=== PATIENT | female | born 1940 | race Caucasian/White ===

== ENCOUNTER → 2017-03-09 | Outpatient (CLI) | payer MEDICARE | END | disposition home or self-care (01) | LOC: CFH 08:34 | PROVIDERS: ATTEND Nurse Practitioner Family | DX: Z12.31 Encounter for screening mammogram for malignant neoplasm of breast (principal) | CPT/HCPCS: G0202 ==

== ENCOUNTER → 2018-06-08 | Outpatient (CLI) | payer MEDICARE | END | disposition home or self-care (01) | LOC: CFH 09:26 | PROVIDERS: ATTEND Nurse Practitioner Family | DX: Z12.31 Encounter for screening mammogram for malignant neoplasm of breast (principal) | CPT/HCPCS: 77067 ==

== ENCOUNTER → 2018-06-16 | Outpatient (CLI) | payer MEDICARE | END | disposition home or self-care (01) | LOC: CFH 12:19 | PROVIDERS: ATTEND Nurse Practitioner Family | DX: M81.0 Age-related osteoporosis without current pathological fracture (principal) | CPT/HCPCS: 77080 ==

== ENCOUNTER 2018-10-27 08:10 | Outpatient (CLI) | payer MEDICARE ==
[~2018-10-27 08:10] MED LIST: REGADENOSON 0.4 MG/5 ML SYRINGE ONE
[2018-11-12] MEDS ORDERED: METO25TA91 PO (08:55)
[2018-11-12] MEDS ORDERED: LISI1TAB23 PO (08:55)
[2018-11-12] MEDS ORDERED: CA C1TAB35 PO (09:03)
[2018-11-12] MEDS ORDERED: SENN1TAB67 PO (09:03)
[2018-11-12] MEDS ORDERED: ALEN70TA6 PO (09:03)
[2018-11-12] MEDS ORDERED: RIVA20TA PO (09:03)
[2018-11-12] MEDS ORDERED: MULT-658 PO (09:03)
== END 2018-10-27 23:59 | disposition home or self-care (01) ==
LOC: CFH 08:10
PROVIDERS: ATTEND Internal Medicine Cardiovascular Disease
DX: I25.9 Chronic ischemic heart disease, unspecified (principal); I48.1 Persistent atrial fibrillation; I10 Essential (primary) hypertension
CPT/HCPCS: 78452; 93017; A9502; J2785

== ENCOUNTER 2018-11-17 08:19 | Day surgery (SDC) | payer MEDICARE ==
[~2018-11-17] VITALS: Ht 170.2 cm; Wt 102.2 kg
[2018-11-17 19:31] VITALS: BP 138/68
== END 2018-11-17 21:25 | disposition home or self-care (01) ==
LOC: CACL 08:19 → 5SO 16:05 → CACL 21:25
PROVIDERS: ATTEND Internal Medicine Cardiovascular Disease
DX: R93.1 Abnormal findings on diagnostic imaging of heart and coronary circulation (principal); I48.91 Unspecified atrial fibrillation; I10 Essential (primary) hypertension; Z79.82 Long term (current) use of aspirin; Z87.891 Personal history of nicotine dependence; Z88.0 Allergy status to penicillin
CPT/HCPCS: 93458; 99156; 99157; C1769; C1894; J1644; J2250; J3010; Q9967; G0378; J0583

== ENCOUNTER 2019-09-15 09:02 | Outpatient (CLI) | payer MEDICARE ==
[~2019-09-15 09:02] MED LIST changes: +ALEN70TA6 PO; +CA C1TAB35 PO; +LISI1TAB23 PO; +METO25TA91 PO; +MULT-658 PO; -REGADENOSON 0.4 MG/5 ML SYRINGE ONE; +RIVA20TA PO; +SENN1TAB67 PO
== END 2019-09-15 23:59 | disposition home or self-care (01) ==
LOC: CFH 09:02
PROVIDERS: ATTEND Nurse Practitioner Family
DX: Z12.31 Encounter for screening mammogram for malignant neoplasm of breast (principal)
CPT/HCPCS: 77067

== ENCOUNTER → 2019-09-19 | Outpatient (CLI) | payer MEDICARE | END | disposition home or self-care (01) | LOC: CVU 07:33 | PROVIDERS: ATTEND Internal Medicine Cardiovascular Disease | DX: I83.93 Asymptomatic varicose veins of bilateral lower extremities (principal); R60.0 Localized edema | CPT/HCPCS: 93970 ==

== ENCOUNTER 2020-02-27 10:27 | Day surgery (SDC) | payer MEDICARE ==
[~2020-02-27] VITALS: Ht 170.2 cm; Wt 104.5 kg
[~2020-02-27 10:27] MED LIST changes: -ALEN70TA6 PO; +ALEN70TA66 PO
[2020-02-27 10:51] VITALS: BP 122/82
[2020-02-27] MEDS ORDERED: CA C1TAB60 PO (11:05)
[2020-02-27] MEDS ORDERED: HYDR25TA6 PO (11:05)
[2020-02-27] MEDS ORDERED: LISI5TAB7 PO (11:05)
[2020-02-27 11:30] LABS: ANION GAP 4 mmol/L (5-15); CALCIUM 8.9 mg/dL (8.5-10.1); CHLORIDE 105 mmol/L (98-107); CREATININE 0.96 mg/dL (0.55-1.02)
[2020-02-27] MEDS ORDERED: PROPOFOL 10 MG/ML, 20ML ONE (12:15)
== END 2020-02-27 13:25 | disposition home or self-care (01) ==
LOC: CACL 10:27
PROVIDERS: ATTEND Internal Medicine Cardiovascular Disease
DX: I48.91 Unspecified atrial fibrillation (principal); I10 Essential (primary) hypertension; M81.0 Age-related osteoporosis without current pathological fracture; I87.2 Venous insufficiency (chronic) (peripheral); E66.9 Obesity, unspecified; Z68.35 Body mass index [BMI] 35.0-35.9, adult; Z79.01 Long term (current) use of anticoagulants; Z79.899 Other long term (current) drug therapy; Z87.891 Personal history of nicotine dependence; Z88.0 Allergy status to penicillin; Z90.89 Acquired absence of other organs
CPT/HCPCS: 36415; 80048; 92960; J2704

== ENCOUNTER → 2020-04-30 | Outpatient (CLI) | payer MEDICARE ==
[~2020-04-30] MED LIST changes: -ALEN70TA66 PO; +ALEN70TA77 PO; +CA C1TAB60 PO; +HYDR25TA6 PO; +LISI5TAB7 PO
== END | disposition home or self-care (01) ==
LOC: CVU 07:56
PROVIDERS: ATTEND Registered Nurse
DX: I08.2 Rheumatic disorders of both aortic and tricuspid valves (principal); I71.9 Aortic aneurysm of unspecified site, without rupture; I10 Essential (primary) hypertension; I48.91 Unspecified atrial fibrillation; Z87.891 Personal history of nicotine dependence; Z79.01 Long term (current) use of anticoagulants
CPT/HCPCS: 93306

== ENCOUNTER 2020-11-16 05:47 | Day surgery (SDC) | payer MEDICARE ==
[~2020-11-16] VITALS: Ht 168.9 cm; Wt 92.3 kg
[~2020-11-16 05:47] MED LIST changes: +DIGO125T85 PO; +SOTA80TA18 PO
[2020-11-16 07:02] VITALS: BP 118/70
[2020-11-16 07:11] LABS: BASOPHILS % (AUTO) 1 % (0-1); EOSINOPHILS % (AUTO) 1 % (1-7); LYMPHOCYTES % (AUTO) 23 % (22-44); MEAN CORPUSCULAR HEMOGLOBIN 29.8 pg (27.0-34.8); MEAN CORPUSCULAR HGB CONC 33.7 g/dL (32.4-35.8); MONOCYTES % (AUTO) 6 % (2-9); NEUTROPHILS % (AUTO) 68 % (42-75); PLATELET COUNT 223 x10^3/uL (130-400); RED BLOOD COUNT 4.67 x10^6/uL (3.82-5.3); RED CELL DISTRIBUTION WIDTH 13.4 % (9.6-15.2)
[2020-11-16 07:19] LABS: ANION GAP 7 mmol/L (5-15); CALCIUM 9.2 mg/dL (8.5-10.1); CHLORIDE 104 mmol/L (98-107); CREATININE 0.79 mg/dL (0.55-1.02)
[2020-11-16] MEDS ORDERED: PROPOFOL 10 MG/ML, 20ML ONE (09:02)
== END 2020-11-16 09:34 | disposition home or self-care (01) ==
LOC: CACL 05:47
PROVIDERS: ATTEND Internal Medicine Cardiovascular Disease
DX: I48.91 Unspecified atrial fibrillation (principal); I10 Essential (primary) hypertension; M81.0 Age-related osteoporosis without current pathological fracture; I87.2 Venous insufficiency (chronic) (peripheral); E66.9 Obesity, unspecified; Z79.01 Long term (current) use of anticoagulants; Z79.899 Other long term (current) drug therapy; Z87.891 Personal history of nicotine dependence; Z88.0 Allergy status to penicillin; Z95.0 Presence of cardiac pacemaker
CPT/HCPCS: 36415; 80048; 85025; 92960; J2704

== ENCOUNTER → 2020-11-19 | Outpatient (CLI) | payer MEDICARE | END | disposition home or self-care (01) | LOC: CFH 10:07 | PROVIDERS: ATTEND Nurse Practitioner Family | DX: Z12.31 Encounter for screening mammogram for malignant neoplasm of breast (principal); M81.0 Age-related osteoporosis without current pathological fracture | CPT/HCPCS: 77063; 77067 ==

== ENCOUNTER 2020-12-13 08:44 | Outpatient (CLI) | payer MEDICARE | END 2020-12-13 23:59 | disposition home or self-care (01) | LOC: CFH 08:44 | PROVIDERS: ATTEND Nurse Practitioner Family | DX: M85.89 Other specified disorders of bone density and structure, multiple sites (principal); M81.0 Age-related osteoporosis without current pathological fracture | CPT/HCPCS: 77080 ==